=== PATIENT | female | born 1960 | race Caucasian/White ===

== ENCOUNTER → 2020-02-29 13:47 | Outpatient (CLI) | payer OTHER, SELFPAY ==
[2020-02-29 15:25] LABS: Progesterone Level 16.25 ng/mL (See Comment)
[2020-02-29 15:32] LABS: Estradiol 95.8 pg/mL; Free T3 2.9 pg/mL (2.18-3.98)
== END ==
PROVIDERS: Referring Provider Specialist; Visit Provider Specialist
DX: N95.1 Menopausal and female climacteric states (principal); E03.9 Hypothyroidism, unspecified
CPT/HCPCS: 36415; 82670; 84144; 84403; 84481